=== PATIENT | female | born 1990 | race Caucasian/White ===

== ENCOUNTER 2018-07-15 15:46 | Emergency (ER) | payer MEDICAID, OTHER ==
[~2018-07-15] VITALS: Ht 142.2 cm; Wt 56.2 kg
[~2018-07-15 15:46] MED LIST: FERR-15 PO; IBUP-974 PO; PREN-385 PO
[2018-07-15 16:03] VITALS: BP 131/76
--- NOTE | 2018-07-15 16:10 | NUR ---
MARICEL MADE AWARE. ORDERED ABD. US WHILR PATIENT IN LOBBY
--- NOTE | 2018-07-15 16:10 | NUR ---
TO LOBBY WITH AT THIS TIME. NO BED AVAIL.
--- NOTE | 2018-07-15 16:14 | NUR ---
PATIENT MADE AWARE THAT US ORDERED .
--- NOTE | 2018-07-15 16:23 | NUR ---
PATIENT AMBULATED TO ER BED 12.
--- NOTE | 2018-07-15 16:23 | NUR ---
PATIENT TO BED #12
--- NOTE | 2018-07-15 16:29 | NUR ---
C/O VAGINAL BLEED WITH BLOOD CLOTS. USED 4 PADS TODAY, 10 PADS YESTERDAY. DENIES ABD. CRAMPING. SEEN AT URGENT CARE TODAY. TEST POSITIVE IN URGENT CARE. RECOMMENDED ABD. US. . 6 WKS. GESTATION. DENIES HX, DENIES MEDS. VSS; PATIENT POSITIONED FOR COMFORT; HOB ELEVATED; BEDRAILS UP X1; BED DOWN. ER MD MADE AWARE OF PT STATUS.
[2018-07-15 16:36] LABS: BASOPHILS % (AUTO) 0.3 % (0.0-2.0); EOSINOPHILS # (AUTO) 0.2 K/uL (0-0.4); EOSINOPHILS % (AUTO) 3.1 % (0.0-4.0); HEMATOCRIT 35.6 % (36-48); HEMOGLOBIN 11.8 g/dL (12.0-16.0); MEAN CORPUSCULAR HEMOGLOBIN 29 pg (27-31); MEAN CORPUSCULAR HGB CONC 33 g/dL (33-37); MEAN CORPUSCULAR VOLUME 88.4 fL (80-94); MONOCYTES # (AUTO) 0.4 K/uL (0.8-1.0); MONOCYTES % (AUTO) 6.4 % (1.7-9.3); NEUTROPHILS # (AUTO) 3.6 K/uL (1.8-7.7); NEUTROPHILS % (AUTO) 58.2 % (42.2-75.2); PLATELET COUNT (AUTO) 193 K/uL (140-450); RED BLOOD CELL COUNT(AUTO) 4.03 MIL/uL (4.20-5.40); RED CELL DISTRIBUTION WIDTH 13.6 % (11.6-13.7); WHITE BLOOD COUNT (AUTO) 6.2 K/uL (4.8-10.8)
[2018-07-15 16:41] LABS: BILIRUBIN,URINE NEGATIVE (NEGATIVE); BLOOD, URINE 3+ (NEGATIVE); COLOR,URINE YELLOW (YELLOW); LEUKOCYTE ESTERASE ,URINE NEGATIVE (NEGATIVE); NITRITE, URINE NEGATIVE (NEGATIVE); PH,URINE 6.5 (5.0-9.0); UGLUCOSE NEGATIVE (NEGATIVE)
[2018-07-15 16:42] LABS: APPEARANCE,URINE SLIGHTLY CLOUDY (CLEAR)
--- NOTE | 2018-07-15 16:43 | NUR ---
US AT BEDSIDE
[2018-07-15 16:44] LABS: RBC,URINE >100 /HPF (0-5); WBC,URINE 0-5 (RARE) /HPF (0-5)
--- NOTE | 2018-07-15 18:59 | NUR ---
PT MOVED TO [facility] TO WAIT FOR DISCHARGE PAPERWORK
[2018-07-15 19:12] VITALS: BP 131/76
== END 2018-07-15 19:10 | disposition home or self-care (01) ==
LOC: MED 15:46
DX: O20.0 Threatened abortion (principal); Z3A.01 Less than 8 weeks gestation of pregnancy; Z79.899 Other long term (current) drug therapy
CPT/HCPCS: 36415; 76817; 81001; 81025; 84702; 85025; 86900; 86901; 99284; Q0092

== ENCOUNTER 2018-07-19 10:29 | Emergency (ER) | payer OTHER ==
[~2018-07-19] VITALS: Ht 142.2 cm; Wt 56.2 kg
[2018-07-19 10:34] VITALS: BP 138/70
--- NOTE | 2018-07-19 10:58 | NUR ---
BIB FRIEND WITH C/O VAGINAL BLEEDING X 1 WK. PT STATES "SHE IS HERE TO CHECK HER HCG LEVELS TO SEE IF SHE HAS A MISCARRIAGE. " PT WAS SEEN HER LAST Tuesday07/15/18.
--- NOTE | 2018-07-19 11:08 | NUR ---
LAB AT BEDSIDE.
[2018-07-19 11:16] LABS: BASOPHILS % (AUTO) 0.3 % (0.0-2.0); EOSINOPHILS # (AUTO) 0.1 K/uL (0-0.4); EOSINOPHILS % (AUTO) 2.5 % (0.0-4.0); HEMATOCRIT 29.1 % (36-48); HEMOGLOBIN 9.8 g/dL (12.0-16.0); LYMPHOCYTES # (AUTO) 1.7 K/uL (2.5-16.5); LYMPHOCYTES % (AUTO) 31.8 % (20.5-51.1); MEAN CORPUSCULAR HEMOGLOBIN 30 pg (27-31); MEAN CORPUSCULAR HGB CONC 34 g/dL (33-37); MEAN CORPUSCULAR VOLUME 89.2 fL (80-94); MONOCYTES # (AUTO) 0.3 K/uL (0.8-1.0); MONOCYTES % (AUTO) 4.8 % (1.7-9.3); NEUTROPHILS # (AUTO) 3.2 K/uL (1.8-7.7); NEUTROPHILS % (AUTO) 60.6 % (42.2-75.2); PLATELET COUNT (AUTO) 175 K/uL (140-450); RED BLOOD CELL COUNT(AUTO) 3.26 MIL/uL (4.20-5.40); RED CELL DISTRIBUTION WIDTH 13.8 % (11.6-13.7); WHITE BLOOD COUNT (AUTO) 5.3 K/uL (4.8-10.8)
--- NOTE | 2018-07-19 12:50 | NUR ---
DR EDWARDS AT BEDSIDE.
[2018-07-19 13:19] VITALS: BP 138/70
--- NOTE | 2018-07-19 13:19 | NUR ---
Patient discharged with v/s stable. Written and verbal after care instructions given and explained. Patient verbalized understanding. Ambulatory with steady gait. All questions addressed prior to discharge. Advised to follow up with PMD.
== END 2018-07-19 13:19 | disposition home or self-care (01) ==
LOC: MED 10:29
DX: O03.9 Complete or unspecified spontaneous abortion without complication (principal); Z79.899 Other long term (current) drug therapy
CPT/HCPCS: 36415; 81002; 81025; 84702; 85025; 99283

== ENCOUNTER 2019-05-03 16:25 | Emergency (ER) | payer OTHER ==
[~2019-05-03] VITALS: Ht 142.2 cm; Wt 55.3 kg
[2019-05-03 16:37] VITALS: BP 121/73
--- NOTE | 2019-05-03 16:58 | NUR ---
PATIENT AMBULATED TO BED 5.
--- NOTE | 2019-05-03 17:04 | NUR ---
A1 LMP 03/01/19 9 WKS PREG C/O VAGINAL BLEEDING STARTING TODAY. PT REPORTS DARK BROWN BLOOD, AND SLIGHT CRAMPING. . DENIES N/V/D; SKIN IS PINK/WARM/DRY; AAOX4 WITH EVEN AND STEADY GAIT; LUNGS CLEAR BL; HR EVEN AND REGULAR; PT DENIES ANY FEVER, CP, SOB, OR COUGH AT THIS TIME; PATIENT STATES PAIN OF 2/10 AT THIS TIME; VSS; PATIENT POSITIONED FOR COMFORT; HOB ELEVATED; BEDRAILS UP X2; BED DOWN. ER MD MADE AWARE OF PT STATUS.
[2019-05-03 17:20] LABS: BASOPHILS % (AUTO) 0.3 % (0.0-2.0); EOSINOPHILS # (AUTO) 0.1 K/uL (0-0.4); EOSINOPHILS % (AUTO) 1.8 % (0.0-4.0); HEMATOCRIT 36.1 % (36-48); HEMOGLOBIN 12.2 g/dL (12.0-16.0); LYMPHOCYTES # (AUTO) 1.9 K/uL (2.5-16.5); LYMPHOCYTES % (AUTO) 32.1 % (20.5-51.1); MEAN CORPUSCULAR HEMOGLOBIN 30 pg (27-31); MEAN CORPUSCULAR HGB CONC 34 g/dL (33-37); MEAN CORPUSCULAR VOLUME 89.4 fL (80-94); MONOCYTES # (AUTO) 0.4 K/uL (0.8-1.0); NEUTROPHILS # (AUTO) 3.5 K/uL (1.8-7.7); NEUTROPHILS % (AUTO) 58.8 % (42.2-75.2); PLATELET COUNT (AUTO) 183 K/uL (140-450); RED BLOOD CELL COUNT(AUTO) 4.04 MIL/uL (4.20-5.40); RED CELL DISTRIBUTION WIDTH 13.3 % (11.6-13.7); WHITE BLOOD COUNT (AUTO) 5.9 K/uL (4.8-10.8)
--- NOTE | 2019-05-03 17:34 | NUR ---
Ultrasound at bedside.
[2019-05-03 17:52] LABS: APPEARANCE,URINE CLEAR (CLEAR); BILIRUBIN,URINE NEGATIVE (NEGATIVE); BLOOD, URINE 3+ (NEGATIVE); COLOR,URINE YELLOW (YELLOW); LEUKOCYTE ESTERASE ,URINE NEGATIVE (NEGATIVE); NITRITE, URINE NEGATIVE (NEGATIVE); UGLUCOSE NEGATIVE (NEGATIVE)
[2019-05-03 18:23] LABS: WBC,URINE 0-5 /HPF (0-5)
[2019-05-03 18:28] VITALS: BP 113/76
--- NOTE | 2019-05-03 18:28 | NUR ---
Patient discharged with v/s stable. Written and verbal after care instructions given and explained REGARDING VAGINAL BLEEDING DURING . Patient verbalized understanding. Ambulatory with steady gait. All questions addressed prior to discharge. Advised to follow up with OBGYN PT GIVEN A COPY OF ALL LAB AND US RESULTS
== END 2019-05-03 18:28 | disposition home or self-care (01) ==
LOC: MED 16:25
DX: O46.91 Antepartum hemorrhage, unspecified, first trimester (principal); Z3A.09 9 weeks gestation of pregnancy; Z79.899 Other long term (current) drug therapy; Z79.1 Long term (current) use of non-steroidal anti-inflammatories (NSAID)
CPT/HCPCS: 36415; 76805; 81001; 81025; 84702; 85025; 86900; 86901; 99284; Q0092

== ENCOUNTER 2021-04-27 12:23 | Emergency (ER) | payer OTHER ==
[~2021-04-27] VITALS: Ht 142.2 cm; Wt 54.4 kg
[2021-04-27 12:43] VITALS: BP 109/75
--- NOTE | 2021-04-27 15:15 | NUR ---
Patient discharged with v/s stable. Written and verbal after care instructions ABOUT UPPER RESPIRATORY given and explained BY DANIELA KEENAN Patient alert, oriented and verbalized understanding of instructions. Ambulatory with steady gait. All questions addressed prior to discharge. ID band removed. Patient advised to follow up with PMD. Rx of NAPROXEN AND PROMETHAZINE DM given. Patient educated on indication of medication including possible reaction and side effects. Opportunity to ask questions provided and answered.
[2021-04-27] MEDS ORDERED: NAPR-54 PO (15:31)
[2021-04-27] MEDS ORDERED: PROM118S5 PO (15:31)
== END 2021-04-27 15:15 | disposition home or self-care (01) ==
LOC: MED 12:23
DX: J06.9 Acute upper respiratory infection, unspecified (principal); Z20.822 Contact with and (suspected) exposure to COVID-19; Z79.899 Other long term (current) drug therapy; Z98.890 Other specified postprocedural states
CPT/HCPCS: 87804; 99283

== ENCOUNTER 2021-09-22 15:06 | Emergency (ER) | payer OTHER ==
[~2021-09-22] VITALS: Ht 142.2 cm; Wt 56.7 kg
[~2021-09-22 15:06] MED LIST changes: +NAPR-54 PO; +PROM118S5 PO
[2021-09-22 15:18] VITALS: BP 120/85
--- NOTE | 2021-09-22 15:23 | NUR ---
PT AMB TO BED 8.
--- NOTE | 2021-09-22 15:34 | NUR ---
31 Y/O F BIB SELF C/O R FLANK PAIN /10 SINCE YESTERDAY. PT DENIES N/V/D OR TRAUMA. PAIN IS MORE WITH MOVEMENT OR WHEN HAVE FULL BLADDER. NKA OR PMH.
[2021-09-22 15:40] LABS: BILIRUBIN,URINE NEGATIVE (NEGATIVE); BLOOD, URINE 2+ (NEGATIVE); COLOR,URINE YELLOW (YELLOW); LEUKOCYTE ESTERASE ,URINE 1+ (NEGATIVE); NITRITE, URINE NEGATIVE (NEGATIVE); UGLUCOSE NEGATIVE (NEGATIVE)
[2021-09-22 15:47] LABS: APPEARANCE,URINE HAZY (CLEAR)
--- NOTE | 2021-09-22 15:48 | NUR ---
DR WINN AT BEDSIDE
--- NOTE | 2021-09-22 15:53 | NUR ---
MD CHAPIN AT BEDSIDE FOR ABD ULTRASAUND.
[2021-09-22] MEDS ORDERED: cefTRIAXone 1,000 MG VIAL ONE (16:06)
[2021-09-22 16:22] LABS: BASOPHILS % (AUTO) 0.2 % (0.0-2.0); EOSINOPHILS % (AUTO) 0.1 % (0.0-4.0); HEMATOCRIT 37.8 % (36-48); HEMOGLOBIN 12.7 g/dL (12.0-16.0); LYMPHOCYTES % (AUTO) 12.7 % (20.5-51.1); MEAN CORPUSCULAR HEMOGLOBIN 29 pg (27-31); MEAN CORPUSCULAR HGB CONC 34 g/dL (33-37); MEAN CORPUSCULAR VOLUME 86.3 fL (80-94); MONOCYTES # (AUTO) 0.6 K/uL (0.8-1.0); PLATELET COUNT (AUTO) 187 K/uL (140-450); RED BLOOD CELL COUNT(AUTO) 4.38 MIL/uL (4.20-5.40); RED CELL DISTRIBUTION WIDTH 14.2 % (11.6-13.7); WHITE BLOOD COUNT (AUTO) 7.6 K/uL (4.8-10.8)
[2021-09-22 16:32] LABS: ANION GAP 15.1 (8-16); CARBON DIOXIDE 23.3 mmol/L (21-32); CREATININE 0.8 mg/dL (0.6-1.3); POTASSIUM 3.4 mmol/L (3.5-5.1)
[2021-09-22 16:38] LABS: ALBUMIN 3.2 g/dL (3.4-5.0); TOTAL BILIRUBIN 0.6 mg/dL (0.0-1.0)
--- NOTE | 2021-09-22 16:58 | NUR ---
PT ASLEEP AT THE TIME
[2021-09-22] MEDS ORDERED: CEPH-588 PO (17:28)
[2021-09-22 18:00] VITALS: BP 122/75
== END 2021-09-22 18:04 | disposition home or self-care (01) ==
LOC: MED 15:06
DX: N12 Tubulo-interstitial nephritis, not specified as acute or chronic (principal); Z79.899 Other long term (current) drug therapy
CPT/HCPCS: 36415; 80053; 81001; 81025; 83690; 85025; 87086; 96365; 96366; 99284; J0696

== ENCOUNTER 2023-07-14 10:04 | Emergency (ER) | payer OTHER ==
[~2023-07-14] VITALS: Ht 142.2 cm; Wt 63.5 kg
[~2023-07-14 10:04] MED LIST changes: +CEPH-588 PO
[2023-07-14 10:17] VITALS: BP 124/87; PULSE 76; RESP 19; TEMP 97.9; O2SAT 98
[2023-07-14] MEDS ORDERED: LIDOCAINE MPF 2% 100 MG/5 ML VIAL INJ ONE (12:00)
[2023-07-14] MEDS ORDERED: HYDROcodone/APAP 10/325 MG 1 TAB TAB PO PRN (12:00)
[2023-07-14] MEDS ORDERED: KETOROLAC 60 MG/2 ML VIAL IM ONE (12:10)
[2023-07-14] MEDS ORDERED: LIDOCAINE 2% 100 MG/5 ML SYR IVP ONE (12:10)
[2023-07-14] MEDS ORDERED: IBUP-2218 PO (12:30)
[2023-07-14] MEDS ORDERED: CLIN300C2 PO (12:30)
[2023-07-14] MEDS ORDERED: CEFI400C4 PO (12:30)
[2023-07-14 13:37] VITALS: BP 124/87; PULSE 76; RESP 19; TEMP 97.9; O2SAT 98
== END 2023-07-14 13:37 | disposition home or self-care (01) ==
LOC: MED 10:04
DX: N75.0 Cyst of Bartholin's gland (principal); N75.1 Abscess of Bartholin's gland; R03.0 Elevated blood-pressure reading, without diagnosis of hypertension; Z79.899 Other long term (current) drug therapy; Z79.1 Long term (current) use of non-steroidal anti-inflammatories (NSAID); Z79.2 Long term (current) use of antibiotics
CPT/HCPCS: 56420; 81025; 96372; 99284; J1885; J2001

== ENCOUNTER 2024-02-20 09:28 | Emergency (ER) | payer OTHER ==
[~2024-02-20] VITALS: Ht 142.2 cm; Wt 55.5 kg
[~2024-02-20 09:28] MED LIST changes: +CEFI400C4 PO; +CLIN300C2 PO; +IBUP-2218 PO; +NAPR-337 PO; -NAPR-54 PO
[2024-02-20 09:35] VITALS: BP 123/90; PULSE 67; RESP 18; TEMP 97.3; O2SAT 100
[2024-02-20 09:50] VITALS: BP 113/87; PULSE 78; RESP 18; TEMP 97.3; O2SAT 100
== END 2024-02-20 11:24 | disposition home or self-care (01) ==
LOC: MED 09:28
DX: N75.1 Abscess of Bartholin's gland (principal); Z79.899 Other long term (current) drug therapy
CPT/HCPCS: 99284